=== PATIENT | female | born 2000 | race Caucasian/White ===

== ENCOUNTER 2022-08-28 07:50 | Outpatient (CLI) | payer BC | END 2022-08-28 07:51 | disposition home or self-care (01) | LOC: BICULT 07:50 | PROVIDERS: ATTEND Internal Medicine | DX: R10.2 Pelvic and perineal pain (principal); N93.9 Abnormal uterine and vaginal bleeding, unspecified; K92.2 Gastrointestinal hemorrhage, unspecified | CPT/HCPCS: 76856 ==